=== PATIENT | male | born 1970 | race African-American/Black ===

== ENCOUNTER 2020-11-23 20:50 | Emergency (ER) | payer OTHER ==
[~2020-11-23] VITALS: Ht 177.8 cm; Wt 104.3 kg
[~2020-11-23 20:50] MED LIST: ATIVAN1 MG PO; CADUET 2.5 MG-1 EACH PO; DEPO-TESTO100 MG/1 M IM; FLEXERIL PO; LORTAB 5 MG/5001 TAB PO; MEDROLDOSEPACK PO; MICARDIS HCT 81 EACH PO; NORCO 5-325 TA1 EACH PO; PERCOCET 5-3251 EACH PO; VICODIN 5-5001 EACH; VITAMIN D3400 UNIT/5
[2020-11-23] MEDS ORDERED: BENAZEPRIL HCL20 MG PO (21:09)
[2020-11-23 21:26] LABS: ABSOLUTE NEUTROPHILS 4.3 thou/uL (1.4-8.2); BASOPHILS 0.6 % (0.0-2.0); EOSINOPHILS 0.6 % (0.0-3.0); HEMOGLOBIN 15.5 gm/dL (14.0-18.0); LYMPHOCYTES 17.8 % (24.0-44.0); MCH 29.9 pg (26.0-34.0); MCHC 33.7 g/dL (28.0-37.0); MCV 88.8 fL (80.0-100.0); MONOCYTES 8.1 % (1.0-8.0); PLATELET COUNT 223 thou/uL (150-400); POLYS 72.9 % (36.0-66.0); RBC 5.18 mil/uL (4.50-6.00); RDW 16.6 % (10.5-14.5); WBC 5.9 thou/uL (4.0-11.0)
[2020-11-23 21:45] LABS: ANION GAP 16 mmol/L (7-16); BUN 11 mg/dL (7-18); CALCIUM 10.2 mg/dL (8.5-10.1); CHLORIDE 100 mmol/L (98-107); CO2 26 mmol/L (21-32); CREATININE 1.1 mg/dL (0.7-1.3); GLUCOSE 142 mg/dL (74-106); POTASSIUM 3.1 mmol/L (3.5-5.1); SODIUM 142 mmol/L (136-145)
[2020-11-23 21:50] LABS: ALBUMIN 4.4 g/dL (3.4-5.0); SGOT 67 U/L (15-37); SGPT 151 U/L (16-63); TOTAL BILIRUBIN 0.8 mg/dL (0.2-1.0); TOTAL PROTEIN 8.8 g/dL (6.4-8.2); TROPONIN-I <0.06 ng/mL (<0.06)
[2020-11-23 22:05] VITALS: BP 164/88
--- NOTE | 2020-11-24 06:52 | EKG ---
[place] [address] [facility] [place] [address] ELECTROCARDIOGRAM REPORT Name: HANNAH STRINGER [id number] Admission: 11/23/20 Attend Phys: Discharge: 11/23/20 Date of : 68 Report #: [id number] [facility] ED Test Date: 2020-11-23 Test Time: 21:14:50 Pat Name: HANNAH STRINGER Department: Room: Gender: Insights Manager: maynor : 1970 Requested By: Trenton Robin Order Number: [id number] MD: Yusuf Hagan Measurements Intervals [place] Rate: 74 P: -1 CO: 155 QRS: 87 QRSD: 96 T: 47 QT: 375 QTc: 416 Interpretive Statements Sinus rhythm Probable left atrial enlargement Abnormal R-wave progression, late transition No previous ECG available for comparison Electronically Signed On 11-24-2020 6:52:21 CDT by Yusuf Hagan [email or web address] <ELECTRONICALLY SIGNED> By: Yusuf Hagan MD, [facility] 11/24/20 [id number] Yusuf Hagan MD, FACC /EPI
== END 2020-11-23 22:14 | disposition home or self-care (01) ==
LOC: ER 20:50
PROVIDERS: Physician Assistant
DX: I10 Essential (primary) hypertension (principal); F14.90 Cocaine use, unspecified, uncomplicated; Z79.899 Other long term (current) drug therapy